=== PATIENT | female | born 1945 | race Caucasian/White ===

== ENCOUNTER 2021-12-01 12:32 | Inpatient (IN) | payer MEDICARE ==
[~2021-12-01] VITALS: Ht 154.9 cm; Wt 61.8 kg
[2021-12-01] MEDS ORDERED: CITALOPRAM HBR20 MG PO (13:36)
[2021-12-01] MEDS ORDERED: TRULICITY0.75 MG/0. SQ (13:36)
[2021-12-01] MEDS ORDERED: FUROSEMIDE20 MG PO (13:36)
[2021-12-01] MEDS ORDERED: AMLODIPINE BESY10 MG PO (13:36)
[2021-12-01] MEDS ORDERED: PROTONIX 40 MG40 M1 PO (13:37)
[2021-12-01] MEDS ORDERED: METOPROLOL TART50 MG PO (13:37)
[2021-12-01] MEDS ORDERED: ONDANSETRON HCL4 MG PO (13:37)
[2021-12-01] MEDS ORDERED: SYNTHROID50 MCG PO (13:37)
[2021-12-01] MEDS ORDERED: DICLOFENAC SOD100 MG PO (13:38)
[2021-12-01] MEDS ORDERED: ATORVASTATIN CA20 MG PO (13:38)
[2021-12-01] MEDS ORDERED: MECLIZINE HCL25 MG PO (13:38)
[2021-12-01] MEDS ORDERED: MIRALAX17 GM PO (13:38)
[2021-12-01] MEDS ORDERED: CYCLOBENZAPRINE10 MG PO (13:57)
[2021-12-01] MEDS ORDERED: CETIRIZINE HCL10 MG PO (13:57)
[2021-12-01] MEDS ORDERED: PERCOCET 10-321 EACH PO (13:58)
[2021-12-01] MEDS ORDERED: ASPIRIN EC81 MG PO (13:58)
[2021-12-01] MEDS ORDERED: CBD PO (13:59)
[2021-12-01] MEDS ORDERED: DOCUSATE SODIU100 MG PO (13:59)
[2021-12-01 15:09] LABS: HEMOGLOBIN 8.8 gm/dl (12.3-15.3); RED BLOOD COUNT 3.25 M/UL (4.00-5.10); WHITE BLOOD COUNT 8.9 K/UL (4.5-11.0)
[2021-12-02 07:14] LABS: HEMOGLOBIN 8.8 gm/dl (12.3-15.3); RED BLOOD COUNT 3.28 M/UL (4.00-5.10); WHITE BLOOD COUNT 7.9 K/UL (4.5-11.0)
[2021-12-02 18:20] LABS: BODY FLUID SOURCE PLEURAL; MONONUCLEAR CELLS 91.4 (75-100); POLYMORPHONUCLEAR % 8.6 (0-25); RBC (AUTOMATED) 1100 (0-100000); WBC (AUTOMATED) 243 (0-500)
[2021-12-02 18:36] LABS: LDH, BODY FLUID 68 U/L; TOTAL PROTEIN, BODY FLUID 2.4 gm/dL
[2021-12-03 18:06] LABS: HEMOGLOBIN 9.3 gm/dl (12.3-15.3); RED BLOOD COUNT 3.48 M/UL (4.00-5.10); WHITE BLOOD COUNT 8.6 K/UL (4.5-11.0)
[2021-12-04 10:04] LABS: BUN/CREATININE RATIO 11 (0-10)
--- NOTE | 2021-12-04 11:39 | NUR ---
Tried to call Dr. Ramirez with results of chest x ray but no answer.
--- NOTE | 2021-12-04 12:10 | NUR ---
Dr. Ramirez notified of resulted chest xray.
[2021-12-04] MEDS ORDERED: DOXYCYCLINE HY100 M2 PO (16:24)
[2021-12-04] MEDS ORDERED: LASIX 40 MG TAB40 MG PO (16:24)
[2021-12-04] MEDS ORDERED: K-TAB ER20 MEQ PO (16:24)
[2021-12-04] MEDS ORDERED: AMOX TR-K CLV1 EAC4 PO (16:24)
[2021-12-04] MEDS ORDERED: MAGNESIUM OXID400 M1 PO (16:44)
[2021-12-04] MEDS ORDERED: LISINOPRIL2.5 MG PO (17:32)
== END 2021-12-04 18:08 | disposition home or self-care (01) | DRG 291 ==
LOC: MED SURG 4 13:19
PROVIDERS: Internal Medicine; Internal Medicine Critical Care Medicine; Physician Assistant; ADMIT Internal Medicine
PROC: 0W9B3ZZ Drainage of Left Pleural Cavity, Percutaneous Approach (ICD-10-PCS; principal; 2021-12-02)
PROC: BB4BZZZ Ultrasonography of Pleura (ICD-10-PCS; 2021-12-02)
DX: I11.0 Hypertensive heart disease with heart failure (principal); I50.33 Acute on chronic diastolic (congestive) heart failure; Z20.822 Contact with and (suspected) exposure to COVID-19; J15.9 Unspecified bacterial pneumonia; J96.21 Acute and chronic respiratory failure with hypoxia; J90 Pleural effusion, not elsewhere classified; H91.90 Unspecified hearing loss, unspecified ear; E03.9 Hypothyroidism, unspecified; I08.1 Rheumatic disorders of both mitral and tricuspid valves; E78.5 Hyperlipidemia, unspecified; R42 Dizziness and giddiness; D64.9 Anemia, unspecified; G89.29 Other chronic pain; M54.50 Low back pain, unspecified; E11.9 Type 2 diabetes mellitus without complications; Z79.4 Long term (current) use of insulin; Z87.81 Personal history of (healed) traumatic fracture; Z88.1 Allergy status to other antibiotic agents; Z79.82 Long term (current) use of aspirin; Z88.5 Allergy status to narcotic agent; Z88.8 Allergy status to other drugs, medicaments and biological substances; Z82.49 Family history of ischemic heart disease and other diseases of the circulatory system; Z83.3 Family history of diabetes mellitus; Z80.9 Family history of malignant neoplasm, unspecified; Z98.891 History of uterine scar from previous surgery; Z90.49 Acquired absence of other specified parts of digestive tract
CPT/HCPCS: 36415; 71045; 71046; 71250; 80048; 80053; 81001; 82040; 82550; 82553; 82962; 83036; 83615; 83880; 83986; 84155; 84157; 84484; 85025; 85027; 85610; 87015; 87070; 87077; 87116; 87205; 89051; 93005; J1335; J1650; J1940

== ENCOUNTER → 2021-12-01 | Outpatient (CLI) | payer MEDICARE ==
[~2021-12-01] MED LIST: AMLODIPINE BESY10 MG PO; AMOX TR-K CLV1 EAC4 PO; ASPIRIN EC81 MG PO; ATORVASTATIN CA20 MG PO; CBD PO; CETIRIZINE HCL10 MG PO; CITALOPRAM HBR20 MG PO; CYCLOBENZAPRINE10 MG PO; DICLOFENAC SOD100 MG PO; DOCUSATE SODIU100 MG PO; DOXYCYCLINE HY100 M2 PO; FUROSEMIDE20 MG PO; K-TAB ER20 MEQ PO; LASIX 40 MG TAB40 MG PO; LISINOPRIL2.5 MG PO; MAGNESIUM OXID400 M1 PO; MECLIZINE HCL25 MG PO; METOPROLOL TART50 MG PO; MIRALAX17 GM PO; ONDANSETRON HCL4 MG PO; PERCOCET 10-321 EACH PO; PROTONIX 40 MG40 M1 PO; SYNTHROID50 MCG PO; TRULICITY0.75 MG/0. SQ
== END ==
LOC: HEART 5 10:14
DX: J44.9 Chronic obstructive pulmonary disease, unspecified (principal); R09.02 Hypoxemia; J90 Pleural effusion, not elsewhere classified; S32.009A Unspecified fracture of unspecified lumbar vertebra, initial encounter for closed fracture
CPT/HCPCS: 71046; 94010

== ENCOUNTER → 2021-12-13 | Outpatient (CLI) | payer MEDICARE ==
[2021-12-13 16:28] LABS: HEMOGLOBIN 8.8 gm/dl (12.3-15.3); RED BLOOD COUNT 3.35 M/UL (4.00-5.10)
== END ==
LOC: RAD 14:13
PROVIDERS: Internal Medicine
DX: J40 Bronchitis, not specified as acute or chronic (principal); I50.9 Heart failure, unspecified; M48.54XA Collapsed vertebra, not elsewhere classified, thoracic region, initial encounter for fracture
CPT/HCPCS: 36415; 71046; 80048; 83735; 85027

== ENCOUNTER → 2021-12-20 | Outpatient (CLI) | payer MEDICARE | LOC: EXRD 15:25 | DX: J90 Pleural effusion, not elsewhere classified (principal); R91.8 Other nonspecific abnormal finding of lung field; J98.11 Atelectasis | CPT/HCPCS: 71046 ==

== ENCOUNTER 2022-01-24 07:59 | Emergency (ER) | payer MEDICARE ==
[2022-01-24 09:22] LABS: HEMOGLOBIN 9.3 gm/dl (12.3-15.3); RED BLOOD COUNT 3.42 M/UL (4.00-5.10); WHITE BLOOD COUNT 12.3 K/UL (4.5-11.0)
[2022-01-24] MEDS ORDERED: HYDROCODON-ACE1 EAC4 PO (14:17)
== END 2022-01-24 14:54 | disposition home or self-care (01) ==
LOC: ER1 07:59
PROVIDERS: Emergency Medicine
DX: S42.201A Unspecified fracture of upper end of right humerus, initial encounter for closed fracture (principal); S11.91XA Laceration without foreign body of unspecified part of neck, initial encounter; S00.83XA Contusion of other part of head, initial encounter; R91.1 Solitary pulmonary nodule; I13.0 Hypertensive heart and chronic kidney disease with heart failure and stage 1 through stage 4 chronic kidney disease, or unspecified chronic kidney disease; D63.1 Anemia in chronic kidney disease; N18.9 Chronic kidney disease, unspecified; M25.521 Pain in right elbow; I50.9 Heart failure, unspecified; I25.10 Atherosclerotic heart disease of native coronary artery without angina pectoris; W19.XXXA Unspecified fall, initial encounter
CPT/HCPCS: 70450; 71045; 72125; 72170; 73030; 73080; 73200; 80053; 82550; 82553; 84484; 85025; 90471; 90715; 99284